=== PATIENT | female | born 1995 | race Caucasian/White ===

== ENCOUNTER 2017-01-04 17:44 | Emergency (ER) | payer OTHER ==
[2017-01-04 17:56] VITALS: BP 115/78
[2017-01-04 18:28] LABS: BILIRUBIN,URINE NEGATIVE (NEGATIVE); PH,URINE 5.5 PH (5.0-7.5)
[2017-01-04 18:35] LABS: UA w/ MICROSCOPIC CHARGE YES
[2017-01-04 18:40] LABS: HCG UR QUAL NEGATIVE
[2017-01-04] MEDS ORDERED: ONDANSETRON ODT 4 MG Prepack 2 TL STA (18:44)
[2017-01-04 18:47] LABS: UR CULTURE IF IND NOT INDICATED; WBC,URINE 0-3 /HPF (0-5)
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
[2017-01-04] MEDS ORDERED: ONDANSETRON ODT 4 MG Prepack 2 TL ONE (18:49)
== END 2017-01-04 18:45 | disposition home or self-care (01) ==
LOC: ED 17:44
DX: R11.2 Nausea with vomiting, unspecified (principal)
CPT/HCPCS: 80306; 81001; 81003; 81025; 87086; 99283

== ENCOUNTER 2017-10-09 07:46 | Outpatient (CLI) | payer OTHER ==
--- NOTE | 2017-10-09 10:05 | MRI Report ---
EXAM: MRI LUMBAR SPINE WITHOUT CONTRAST EXAM DATE: 10/09/2017 08:38 AM. CLINICAL HISTORY: Strain of muscle and tendon of unsp wall of thorax. Chronic low back pain for years , worse with bending. Some right leg numbness and tingling. COMPARISON: None. CT scan of the abdomen and pelvis 03/18/2015. TECHNIQUE: Multiplanar, multisequence T1-weighted and fluid-sensitive sequences of the lumbar spine f rom T12 to S1 without contrast. Other: None. FINDINGS: Spinal Cord: The conus terminates at L1. The conus medullaris and cauda equina are unremarkable. The spinal canal is adequate. Alignment: Mild levorotatory curvature of the lumbar spine is noted. No spondylolisthesis. Bone Marrow: Five [id number]-[id number] lumbar vertebral bodies are assumed. No gross fractures or bone les ions. No bone marrow edema. Disk Levels/Facets: T12-L1: Unremarkable. L1-L2: Unremarkable. L2-L3: Unremarkable. L3-L4: Unremarkable. L4-L5: Unremarkable. L5-S1: Unremarkable. Musculature: Normal. No edema or fatty atrophy. Other: The partially visualized retroperitoneum is unremarkable. IMPRESSION: 1. Unremarkable MRI of the lumbar spine. No significant spondylosis. No stenosis. 2. Mild levorotatory curvature of the lumbar spine. Comment: The following findings are so common in adults without low back pain that while we report th eir presence, they must be interpreted with caution and in the context of the clinical situation. (Re gus Cullen et al, Spine 2001) Prevalence of findings in patients without low back pain: Disk degeneration (any evidence): 92% Disk desiccation/T2 signal loss: 83% Disk height loss: 56% Disk bulge: 64% Disk protrusion: 32% Annular tear/high intensity zone: 38% [facility] Referring Provider Line: [phone] SITE ID: [id number]
== END 2017-10-09 07:47 | disposition home or self-care (01) ==
LOC: DI 07:46
PROVIDERS: ATTEND Family Medicine
DX: M54.5 Low back pain (principal); M41.86 Other forms of scoliosis, lumbar region
CPT/HCPCS: 72148